=== PATIENT | male | born 1965 | race Hispanic/Latino ===

== ENCOUNTER 2022-04-22 10:34 | Outpatient (CLI) | payer BC ==
--- NOTE | 2022-04-22 13:04 | Cat Scan Report ---
CT ABDOMEN AND PELVIS WITHOUT CONTRAST INDICATION / CLINICAL INFORMATION: R31.9 HEMATURIA. TECHNIQUE: Axial CT images were obtained through the abdomen and pelvis without IV contrast. Sagittal and hogan l reformatted images. All CT scans at this location are performed using CT dose reduction for ALARA b y means of automated exposure control. COMPARISON: None available. FINDINGS: LOWER CHEST: No significant abnormality. LIVER: No significant abnormality. GALLBLADDER: No significant abnormality. BILE DUCTS: No significant abnormality. PANCREAS: No significant abnormality. SPLEEN: No significant abnormality. ADRENALS: No significant abnormality. RIGHT KIDNEY and URETER: A 7 mm calyceal stone is identified at the lower pole. No hydronephrosis. LEFT KIDNEY and URETER: 1 or 2 punctate calyceal stones are identified in the mid left kidney. No hyd ronephrosis. STOMACH and SMALL BOWEL: No significant abnormality. COLON: There is moderate fecal retention throughout the colon. No evidence for obstruction, focal inf lammation or focal lesion. APPENDIX: No significant abnormality. PERITONEUM: No free fluid. No free air. No fluid collection. LYMPH NODES: No significant adenopathy. AORTA and ARTERIES: No significant abnormality. IVC and VEINS: No significant abnormality. URINARY BLADDER: No significant abnormality. REPRODUCTIVE ORGANS: No significant abnormality. ADDITIONAL FINDINGS: None. SKELETAL SYSTEM: No significant abnormality. IMPRESSION: Bilateral nonobstructing nephrolithiasis as described. Signer Name: Geovani Gibbons Jr, MD Signed: 04/22/2022 1:00 PM Workstation Name: [id number]
== END 2022-04-22 10:35 | disposition home or self-care (01) ==
LOC: CT 10:34
PROVIDERS: ATTEND Urology
DX: N20.0 Calculus of kidney (principal); R31.9 Hematuria, unspecified
CPT/HCPCS: 74176